=== PATIENT | male | born 2000 | race Caucasian/White ===

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

== ENCOUNTER 2019-05-06 20:18 | Emergency (ER) | payer BC ==
[2019-05-06 21:02] VITALS: BP 143/59
--- NOTE | 2019-05-06 21:40 | UC ---
Respiratory Complaint HPI - HPI Summary HPI Summary: Per strong nitric operator: "Sinus congestin with sore throat. Sometimes chest hurts with breathing and eyes occasionally run. Feels very fatigued. Started about 3 days ago. " -no wheezing. no asthma. no fhx asthma. no fevers. no chills. used an OTc nasal spray (? name) x 1 w/o relief. 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 - Family History Known Family History: Negative: Cardiac Disease, Hypertension, Respiratory Disease - no asthma - Social History Alcohol Use: Occasionally Substance Use Type: Marijuana Substance Use Comment - Amount & Last Used: Saturday Smoking Status (MU): Never Smoked Tobacco Type: eCigarettes Review of Systems All Other Systems Reviewed And Are Negative: Yes Constitutional: Positive: Fatigue Skin: Positive: Negative. Negative: Rash Eyes: Positive: Drainage - watery ENT: Positive: Sore Throat - mild, Nasal Discharge, Sinus Congestion, Sinus Pain /Tenderness - x 2 days mild. Negative: Ear Ache Respiratory: Positive: Negative, Cough - mild. Negative: Shortness Of Breath Cardiovascular: Positive: Negative. Negative: Palpitations, Chest Pain Gastrointestinal: Positive: Negative. Negative: Vomiting, Diarrhea, Nausea Genitourinary: Positive: Negative Motor: Positive: Negative Neurovascular: Positive: Negative Musculoskeletal: Positive: Negative Neurological: Positive: Negative Psychological: Positive: Negative Is Patient Immunocompromised?: No Physical Exam Triage Information Reviewed: Yes Appearance: Well-Appearing, No Pain Distress, Well-Nourished - no cough, vouice nml, full senetcnes. no resp distress Vital Signs: Initial Vital Signs Temp 99.4 F 05/06/19 20:58 Pulse 87 05/06/19 20:58 Resp 16 05/06/19 20:58 BP 143/59 05/06/19 20:58 Pulse Ox 100 05/06/19 20:58 Vital Signs Reviewed: Yes Eye Exam: Normal Eyes: Positive: Conjunctiva Clear. Negative: Discharge ENT Exam: Normal ENT: Positive: Pharyngeal erythema - minimal, mild + PND, Nasal congestion - mild, TMs normal, Uvula midline. Negative: TM bulging, TM dull, TM red, Tonsillar swelling, Tonsillar exudate, Hoarse voice, Dental tenderness, Sinus tenderness Dental Exam: Normal Neck exam: Normal Neck: Positive: Supple, Nontender, No Lymphadenopathy Respiratory Exam: Normal Respiratory: Positive: Lungs clear, Normal breath sounds, No respiratory distress, No accessory muscle use. Negative: Crackles, Rhonchi, Stridor, Wheezing Cardiovascular Exam: Normal Cardiovascular: Positive: RRR, No Murmur Abdominal Exam: Normal Abdomen Description: Positive: Nontender, Soft Musculoskeletal Exam: Normal Neurological Exam: Normal Psychological Exam: Normal Skin Exam: Normal Respiratory Course/Dx - Course Course Of Treatment: viral URI. no e/o bactreial infection. no sinus tenderness. sx x 2 d. lungs ckear -he si agreeable w/ plan and understood me well. - Differential Dx/Diagnosis Differential Diagnosis/HQI/PQRI: Asthma, Bronchitis, Sinusitis, Other - URI Provider Diagnosis: Upper respiratory infection, viral Discharge ED - Sign-Out/Discharge Documenting (check all that apply): Patient Departure All imaging exams completed and their final reports reviewed: No Studies - Discharge Plan Condition: Stable Disposition: HOME Patient Education Materials: Upper Respiratory Infection (ED) Referrals: No Primary Care Phys,NOPCP [Primary Care Provider] - Additional Instructions: You can follow up here if your symptoms increase or persist if you don't have a PCP locally. -You can use OTC tylenol cold and sinus and afrin or sinex for no more than 3 consecutive days for stuffy nose. - Billing Disposition and Condition Condition: STABLE Disposition: Home
== END 2019-05-06 21:49 | disposition home or self-care (01) ==
LOC: UCCORT 20:18
DX: J06.9 Acute upper respiratory infection, unspecified (principal); R53.83 Other fatigue
CPT/HCPCS: 99211; G0463

== ENCOUNTER 2019-09-26 12:32 | Emergency (ER) | payer BC ==
[2019-09-26 13:52] LABS: ABS Basophils 0.1 10^3/ul (0-0.2); ABS Eosinophils 0.1 10^3/ul (0-0.6); ABS Lymphocytes 1.7 10^3/ul (1.0-4.8); ABS Monocytes 0.6 10^3/ul (0-0.8); ABS Neutrophils 4.7 10^3/ul (1.5-7.7); Eosinophil % 1.1 %; Hematocrit 45 % (42-52); Lymphocyte % 24.1 %; Mean Corpuscular HGB Conc 34 g/dL (31-36); Mean Corpuscular Hemoglobin 32 pg (27-31); Mean Corpuscular Volume 94 fL (80-94); Mean Platelet Volume 9.1 fL (7.4-10.4); Nucleated Red Blood Cells % 0.1; Platelet Count 233 10^3/uL (150-450); Red Blood Count 4.72 10^6 /uL (4.18-5.48); Red Cell Distribution Width 13 % (10-15); White Blood Count 7.2 10^3/uL (3.5-10.8)
[2019-09-26 14:04] LABS: Albumin 4.5 g/dL (3.2-5.2); BUN/Creatinine Ratio 13.9 (8-20); Calcium 9.8 mg/dL (8.6-10.3); EGFR African American 105.5 (>60); EGFR Non-African American 87.2 (>60); Globulin 2.3 g/dL (2-4); Potassium 4.4 mmol/L (3.5-5.0); Total Bilirubin 0.9 mg/dL (0.2-1.0); Total Protein 6.8 g/dL (6.4-8.9)
--- NOTE | 2019-09-26 14:10 | ED ---
HPI Chest Pain - HPI Summary HPI Summary: This patient is a 19 year old male presenting to [facility] with a chief complaint of left sided chest pain since one month ago. He states he previously had an ECHO with a feather mixer which came back normal but he states the pain has now radiated to his left shoulder and down his arm. He states the pain is a pinching pain. He states it does not feel muscular. He denies SOB. States Hx of WPW and asthma. - History of Current Complaint Chief Complaint: EDChestPainROMI Time Seen by Provider: 09/26/19 14:05 Hx Obtained From: Patient Onset/Duration: Started Weeks Ago Pain Intensity: 4 Pain Scale Used: 0-10 Numeric Chest Pain Location: Left Anterior Chest Pain Radiates To:: Arm - Allergy/Home Medications Allergies/Adverse Reactions: Allergies Allergy/AdvReac Type Severity Reaction Status Date / Time No Known Allergies Allergy Verified 09/26/19 12:34 PMH/Surg Hx/FS Hx/Imm Hx Endocrine/Hematology History: Denies: Hx Diabetes, Hx Thyroid Disease Cardiovascular History: Reports: Other Cardiovascular Problems/Disorders - WPW Denies: Hx Hypertension Respiratory History: Reports: Hx Asthma Denies: Hx Chronic Obstructive Pulmonary Disease (COPD) GI History: Denies: Hx Ulcer - Surgical History Surgery Procedure, Year, and Place: 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 Infectious Disease History: No Infectious Disease History: Denies: Hx Hepatitis, Hx Human Immunodeficiency Virus (HIV), Traveled Outside the [place] in Last 30 Days - Family History Known Family History: Negative: Cardiac Disease, Hypertension, Respiratory Disease - no asthma - Social History Alcohol Use: Occasionally Substance Use Type: Reports: Marijuana Substance Use Comment - Amount & Last Used: Saturday Smoking Status (MU): Never Smoked Tobacco Type: eCigarettes Review of Systems Positive: Chest Pain Negative: Shortness Of Breath All Other Systems Reviewed And Are Negative: Yes Physical Exam - Summary Physical Exam Summary: Constitutional: Well-developed, Well-nourished, Alert. (-) Distressed Skin: Warm, Dry HENT: Normocephalic; Atraumatic Eyes: Conjunctiva normal Neck: Musculoskeletal ROM normal neck. (-) JVD, (-) Stridor, (-) Tracheal deviation Cardio: Rhythm regular, rate normal, Heart sounds normal; Intact distal pulses; Radial pulses are 2+ and symmetric. (-) Murmur Pulmonary/Chest wall: Effort normal. (-) Respiratory distress, (-) Wheezes, (-) Rales Abd: Soft, (-) tenderness, (-) Distension, (-) Guarding, (-) Rebound Musculoskeletal: (-) Edema Lymph: (-) Cervical adenopathy Neuro: Alert, Oriented x3 Psych: Mood and affect Normal Triage Information Reviewed: Yes Vital Signs On Initial Exam: Initial Vitals Temp Pulse Resp BP Pulse Ox 99.3 F 76 15 153/68 97 09/26/19 12:34 09/26/19 12:34 09/26/19 12:34 09/26/19 12:34 09/26/19 12:34 Vital Signs Reviewed: Yes Procedures - Sedation Patient Received Moderate/Deep Sedation with Procedure: No Diagnostics - Vital Signs Vital Signs Temp Pulse Resp BP Pulse Ox 09/26/19 12:34 99.3 F 76 15 153/68 97 - Laboratory Lab Results: Lab Results 09/26/19 09/26/19 09/26/19 Range/Units 13:36 13:36 13:36 WBC 7.2 (3.5-10.8) 10^3/uL RBC 4.72 (4.18-5.48) 10^6 /uL Hgb 15.0 (14.0-18.0) g/dL Hct 45 (42-52) % MCV 94 (80-94) fL MCH 32 H (27-31) pg MCHC 34 (31-36) g/dL RDW 13 (10-15) % Plt Count 233 (150-450) 10^3/uL MPV 9.1 (7.4-10.4) fL Neut % (Auto) 65.6 % Lymph % (Auto) 24.1 % Powell % (Auto) 8.5 % Eos % (Auto) 1.1 % Baso % (Auto) 0.7 % Absolute Neuts (auto) 4.7 (1.5-7.7) 10^3/ul Absolute Lymphs (auto) 1.7 (1.0-4.8) 10^3/ul Absolute Monos (auto) 0.6 (0-0.8) 10^3/ul Absolute Eos (auto) 0.1 (0-0.6) 10^3/ul Absolute Basos (auto) 0.1 (0-0.2) 10^3/ul Absolute Nucleated RBC 0.0 10^3/ul Nucleated RBC % 0.1 Sodium 137 (135-145) mmol/L Potassium 4.4 (3.5-5.0) mmol/L Chloride 103 (101-111) mmol/L Carbon Dioxide 28 (22-32) mmol/L Anion Gap 6 (2-11) mmol/L BUN 15 (6-24) mg/dL Creatinine 1.08 (0.67-1.17) mg/dL Est GFR ( Amer) 105.5 (>60) Est GFR (Non-Af Amer) 87.2 (>60) BUN/Creatinine Ratio 13.9 (8-20) Glucose 88 (70-100) mg/dL Lactic Acid 1.4 (0.5-2.0) mmol/L Calcium 9.8 (8.6-10.3) mg/dL Total Bilirubin 0.90 (0.2-1.0) mg/dL AST 37 (13-39) U/L ALT 28 (7-52) U/L Alkaline Phosphatase 80 (34-104) U/L Troponin I 0.00 (<0.03) ng/mL Total Protein 6.8 (6.4-8.9) g/dL Albumin 4.5 (3.2-5.2) g/dL Globulin 2.3 (2-4) g/dL Albumin/Globulin Ratio 2.0 (1-3) Result Diagrams: 09/26/19 13:36 09/26/19 13:36 Lab Statement: Any lab studies that have been ordered have been reviewed, and results considered in the medical decision making process. - Radiology CXR Radiology Interpretation Completed By: Radiologist Summary of Radiographic Findings: No evidence for acute disease. ED Provider has reviewed this report. - EKG 1233 Cardiac Rate: NL - 84 BPM EKG Rhythm: Sinus Rhythm Summary of EKG Findings: Early repol pattern. No ischemic changes. Dr. Lopez has reviewed and interpreted this EKG. Chest Pain Course/Dx - Course Course Of Treatment: This patient is a 19 year old male presenting to [facility] with a chief complaint of left sided chest pain since one month ago. Physical exam, labs, and imaging were unremarkable. Plan for discharge was discussed with the patient and he was agreeable with this plan. - Diagnoses Provider Diagnoses: Chest pain Discharge ED - Sign-Out/Discharge Documenting (check all that apply): Patient Departure - Discharge - Discharge Plan Condition: Stable Disposition: HOME Patient Education Materials: Chest Pain (ED) Referrals: No Primary Care Phys,NOPCP [Primary Care Provider] - Additional Instructions: Follow up with your Primary Care Provider or Iv Technician. Return to ED with new or worsening symptoms. - Billing Disposition and Condition Condition: STABLE Disposition: Home - Attestation Statements Document Initiated by Frankibvahid: Yes Documenting Scribe: Partha Dash Provider For Whom Branden is Documenting (Include Credential): Tiago Lopez DO Scribe Attestation: Partha Khalil scribed for Tiago Lopez DO on 09/26/19 at 1702. Scribe Documentation Reviewed: Yes Provider Attestation: The documentation as recorded by the Partha leo accurately reflects the service I personally performed and the decisions made by Tiago bell DO Status of Scribe Document: Viewed
[2019-09-26 15:26] VITALS: BP 161/84
== END 2019-09-26 15:25 | disposition home or self-care (01) ==
LOC: ED 12:32
DX: R07.9 Chest pain, unspecified (principal); J45.909 Unspecified asthma, uncomplicated
CPT/HCPCS: 36415; 71045; 80053; 83605; 84484; 85025; 93005; 99282